=== PATIENT | male | born 1950 | race Caucasian/White ===

== ENCOUNTER 2022-01-10 14:17 | Emergency (ER) | payer MEDICARE, BC ==
[2022-01-10] MEDS ORDERED: Bacitracin Oint 1 GM U/D Packet TOP ONE (14:40)
[2022-01-10] MEDS ORDERED: Lidocaine 1% 5 ML VIAL INJECT ONE (14:40)
== END 2022-01-10 15:20 | disposition home or self-care (01) ==
LOC: JP.ED 14:17
DX: S60.352A Superficial foreign body of left thumb, initial encounter (principal); S60.451A Superficial foreign body of left index finger, initial encounter; W45.8XXA Other foreign body or object entering through skin, initial encounter
CPT/HCPCS: 99283